=== PATIENT | female | born 1980 | race Caucasian/White ===

== ENCOUNTER 2024-12-04 12:22 | Outpatient (CLI) | payer OTHER, BC, SELFPAY ==
[2024-12-04 13:28] LABS: Hematocrit 42.5 % (37.0-47.0); Hemoglobin 13.9 g/dL (12.0-15.0)
--- OUTSIDE RECORDS SUMMARY | 2024-12-04 14:21 | XMS_ITS | Clinical Summary ---
Author Organization [facility] Address [address] [place] [address] Care Team Providers Care Feltmaker And Weigher Name Role Phone Bharat Jimneez MD Primary Care Provider [phone] Allergies Active Allergy Reactions Criticality Noted Date Comments Clindamycin Diarrhea Low 04/11/2018 Medications EPINEPHrine (EPIPEN) 0.3 mg/0.3 mL Auto-Injector 03/16/19 18 Active copper (PARAGARD T 380A INTRAUTERINE) by Intrauterine route. 01/19/20 18 028 Active ALPRAZolam (XANAX) 0.25 mg tabletIndications: Other specified anxiety disorders Take 1 Tablet (0.25 mg) by mouth 2 times daily as needed for Anxiety. 30 Tablet 2 09/18/19 22 Active cholecalciferol 1,250 mcg (50,000 unit) CapsuleIndications :Vitamin D deficiency Take 1 Capsule (50,000 Units) by mouth every 7 days. 12 Capsule 3 08/12/19 23 Active methylPREDNISolone (MEDROL DOSPACK) 4 mg Tablets, Dose PackIndications:Ho spital discharge follow-up,Pneumoni a of both lower lobes due to infectious organism Take as directed on package 21 Tablet 11/15/19 24 Active pravastatin (PRAVACHOL) 10 mg tabletIndications: Other hyperlipidemia Take 1 Tablet (10 mg) by mouth daily at bedtime. 90 Tablet 3 12/19/19 24 Active venlafaxine (EFFEXOR XR) 75 mg Extended Release 24 hour capsuleIndications :Anxiety state TAKE 1 CAPSULE BY MOUTH EVERY DAY 100 Capsule 3 04/11/19 25 Active levothyroxine 137 mcg tabletIndications: Other specified hypothyroidism TAKE 1 TABLET BY MOUTH EVERY DAY IN THE MORNING 90 Tablet 1 07/13/19 25 Active Active Problems Patient Care Coordination No te Formatting of this note migh t be different from the original. Prev visit 07/17/20 Problem Noted Date Diagnosed Date Other specified hypothyroidism 04/11/2018 Intractable migraine with aura without status mi grainosus 01/23/2017 Hyperlipidemia 03/23/2012 Migraine 03/23/2012 PCOS (polycystic ovarian syndrome) 06/21/2011 Skin lesion 06/21/2011 Resolved Problems Problem Noted Date Diagnosed Date Resolved Date Hypothyroidism due to acquir ed atrophy of thyroid 09/09/2014 04/11/2018 Encounters Date Type Department Care Team Description 09/10/2024 External Device Data ST[facility] ABSTRACTION Provider, Abstract from Last 3 Months Immunizations Immunization Administration Dates Next Due (ADACEL/BOOSTRIX)(10 YR UP) TDAP VACCINE, 0.5ML, IM 08/30/2019,02/07/2008 Influenza Seasonal Unspecified Formulation IM Family History Medical History Relation Name Comments Other Father Gout Peripheral Neuropathy Father Hypertension Maternal Grandmother Other Maternal Grandmother high ch olesterol Migraines Mother tumor in eye Other Mother occular tumor Cancer Paternal Grandfather Stroke Paternal Grandfather Seizures Paternal Grandmother Stroke Paternal Grandmother Relation Name Status Comments Brother 1 Alive Brother 2 Alive Father Alive Maternal Grandmother Mother Alive Paternal Grandfather Paternal Grandmother Sister 1 Alive Sister 2 Alive Sister 3 Alive Sister 4 Alive Social History Tobacco Use Types Packs/Day Years Used Date Smoking Tobacco: Former Cigarettes 1 12 Passive Smoke Exposure: Past Smokeless Tobacco: Former Quit: 07/08/2011 Tobacco Cessation:Counseling Given: Yes Comments:using electronic cigarettes as of Mar 2012 Alcohol Use Standard Drinks/Week Comments Not Currently 0 (1 standard drink = 0.6 oz pur e alcohol) Comments No Sex and Gender Information Value Date Recorded Sex Assigned at Not on file 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 Gender Identity Not on file Sexual Orientation Not on file Last Filed Vital Signs Vital Sign Reading Time Taken Comments Blood Pressure 102/72 11/15/2023 9:02 AM CDT Pulse 75 11/15/2023 9:02 AM CDT Temperature 36.8 C (98.2 F) 01/20/2022 7:47 AM 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 Respiratory Rate 18 06/12/2020 10:39 AM CDT Oxygen Saturation 96% 11/15/2023 9:02 AM CDT Inhaled Oxygen Concentration - - Weight 107 kg (236 lb) 11/15/2023 9:02 AM CDT Height 167.6 cm (5' 6) 11/15/2023 9:02 AM CDT Body Mass Index 38.09 11/15/2023 9:02 AM CDT Plan of Treatment Health Maintenance Due Date Last Done Comments HEPATITIS B VACCINES (1 of 3 - 19+ 3-dose series) 2001 HPV/Cotest (21-29) 10/29/2003 HPV VACCINES (1 - 3-dose SCD M series) 2009 HPV/Cotest (30-65) 2012 CERVICAL CANCER SCREENING 02/15/2017 PAP SMEAR 02/15/2017 02/15/2014 Preventative Visit- Commercial 02/07/2024 0 03/28/2023, 01/20/2022, 07/17/2020, Additional history exists INFLUENZA VACCINE (#1) 2024 11/20/2019 BREAST CANCER SCREENING 11/15/2024 11/16/2023 DTAP/TDAP/TD VACCINES (3 - T d or Tdap) 08/29/2029 08/30/2019, 02/07/2008 Procedures Procedure Name Priority Date/Time Associated Diagnosis Comments MAMMO 3D CAMPOS DIAGNOSTIC BILAT W OR WO CAD Routine 11/16/2023 1:52 PM CDT from Last 3 Months or Most Recently Relevant to Health Maintenance Results * MAMMO 3D CAMPOS DIAGNOSTIC BILAT W OR WO CAD (11/16/2023 1:52 PM CDT) Anatomical Region Laterality Modality Breast Bilateral Mammography us Abstract Provider MAMMO ORDERABLES Edited Result - Final from Last 3 Months or Most Recently Relevant to Health Maintenance Insurance [facility] BLUE ACCESS CHOICE Advance Directives For more information, please contact: [phone] * Full Code (Latest Code Status on File) Date Activated Date Inactivated Comments 07/27/2011 8:34 AM 07/27/2011 12:52 PM Care Teams Feltmaker And Weigher Relationship Specialty Start Date End Date Bharat Jimenez MD PCP - General Internal Medicine 06/21/11
--- OUTSIDE RECORDS SUMMARY | 2024-12-04 14:21 | XMS_ITS | Clinical Summary ---
Author Organization [facility] [address] Address [address] [place] [address] Care Team Providers Care Sample Prep Technician Name Role Phone Bharat Jimenez MD Primary Care Provider + Allergies Active Allergy Reactions Criticality Noted Date Comments Levofloxacin Swelling Medium 11/04/2023 Upper lip swelling with IV administration. Pt. States she has taken PO before with no reaction. Medications levothyroxine (SYNTHROID, LEVOTHROID) 100 mcg tabletIndicatio ns:hypothyroidi sm Take 137 mcg by mouth assistant professor sculpture before breakfast 8 Active venlafaxine (EFFEXOR) 75 mg tablet Take 1 tablet (75 mg total) by mouth daily Active pravastatin (PRAVACHOL) 10 mg tablet Take 1 tablet (10 mg total) by mouth nightly 2 Active benzonatate (TESSALON) 100 mg capsuleIndicati ons:Cough Take 1 capsule (100 mg total) by mouth 3 (three) times a day as needed for cough 20 capsule 4 Active Active Problems Problem Noted Date Diagnosed Date Pneumonia of both lower lobes due to infectious organism 11/03/2023 Tobacco dependence syndrome 06/22/2013 Overview (05/14/2016): TOBACCO USE DISORDER Surgical History Surgery Date Site/Laterality Comments OTHER SURGICAL HISTORY Premenstrual Dysphoric Disorder: fluoxetine per dr wetzel Medical History Medical History Date Comments Hx Other Medical Premenstrual Dy sphoric Disorder Thyroid disease Family History Medical History Relation Name Comments Stroke Maternal Grandfather Stroke; Cancer Paternal Grandfather Relation Name Status Comments Maternal Grandfather Paternal Grandfather Social History Tobacco Use Types Packs/Day Years Used Date Smoking Tobacco: Never Smokeless Tobacco: Never Alcohol Use Standard Drinks/Week Comments No 0 (1 standard drink = 0.6 oz pur e alcohol) AUDIT-C Answer Date Recorded Q1: How often do you have a drink containing alcohol? Never 11/03/2023 Q2: How many drinks containi ng alcohol do you have on a typical day when you are drinking? Patient does not drink Q3: How often do you have si x or more drinks on one occasion? Never 11/03/2023 Personal Safety Answer Date Recorded Have you ever been in or are you currently in a harmful physical or emotional relationship or is someone making you feel afraid or unsafe? 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 Gender Identity Not on file Sexual Orientation Not on file Obstetrics History Last Filed Vital Signs Vital Sign Reading Time Taken Comments Blood Pressure 120/78 11/05/2023 7:30 AM CDT Pulse 67 11/05/2023 7:30 AM CDT Temperature 36.2 C (97.2 F) 11/05/2023 7:30 AM CDT Respiratory Rate 18 11/05/2023 7:30 AM CDT Oxygen Saturation 96% 11/05/2023 7:30 AM CDT Inhaled Oxygen Concentration - - Weight 107 kg (235 lb 14.3 oz) 11/03/2023 12:20 PM CDT Height 167.6 cm (5' 6) 11/03/2023 12:20 PM CDT Body Mass Index 38.07 11/03/2023 12:20 PM CDT Plan of Treatment Health Maintenance Due Date Last Done Comments Breast Cancer Screening-Mammogram 1982 Cervical Cancer Screening 1982 Hepatitis C Screening 1982 Varicella Vaccines (1 of 2 - 13+ 2-dose series) 10/29/1995 Hepatitis B Screening 2000 Regular Well Visit/Exam 18-64 2000 HPV Vaccines (1 - 3-dose SCD M series) 2009 Depression Screening 06/11/2018 06/11/2017 Influenza Vaccine (#1) 2024 11/20/2019 DTaP/Tdap/Td Vaccine (3 - Td or Tdap) 08/29/2029 08/30/2019, 02/07/2008 Pneumococcal vaccine <65 Aged Out No longer eligible based on patient's age to complete this topic Insurance [employer] ACCESS CHOICE [employer] ACCESS CHOICE [employer] Advance Directives For more information, please contact: [phone] * Full Code (Latest Code Status on File) Date Activated Date Inactivated Comments 11/03/2023 11:00 AM 11/05/2023 5:26 PM Care Teams Sample Prep Technician Relationship Specialty Start Date End Date Bharat Jimenez MD PCP - General Internal Medicine 06/11/17
--- OUTSIDE RECORDS SUMMARY | 2024-12-04 14:21 | XMS_ITS | Clinical Summary ---
Author Organization [facility] Address [address] [place] [address] Phone Care Team Providers Care Electric Meter Reader Name Role Phone Bharat Jimenez MD Primary Care Provider [phone] Allergies Active Allergy Reactions Criticality Noted Date Comments Clindamycin Diarrhea High 04/11/2018 Azithromycin Diarrhea Medium 11/30/2021 Patient states she can take a z toña Medications levothyroxine (SYNTHROID) 112 MCG Tablet Take 112 mcg by mouth daily. Active Cholecalciferol (VITAMIN D3 PO) Take by mouth once a week. Active pravastatin (PRAVACHOL) 10 MG Tablet Take 10 mg by mouth nightly. 2 Active ALPRAZolam (XANAX) 0.25 MG Tablet Take 0.25 mg by mouth. 2 Active EPINEPHrine (EPIPEN) 0.3 MG/0.3ML Solution Auto-injector 8 Active ibuprofen (MOTRIN) 800 MG Tablet Take 800 mg by mouth. 8 Active venlafaxine (EFFEXOR-XR) 75 MG CAPSULE SR 24 HR Take 75 mg by mouth. 1 Active Paragard Intrauterine Copper IUD by Intrauterine route. Active predniSONE (DELTASONE) 10 MG TabletIndication s:Acute otalgia, left Take 4 tab PO daily x 2 days, 3 tab PO daily x 2 days, 2 tab PO daily x 2 day, 1 tab PO daily x 2 days. 20 Tablet 2 Active Additional Information Patient not taking.Reported on 12/20/2022 ofloxacin (OCUFLOX) 0.3 % Solution Place 1 Drop in affected eye(s) 4 times daily. 5 mL Active Additional Information Patient not taking.Reported on 05/29/2023 Active Problems No known active problems Social History Tobacco Use Types Packs/Day Years Used Date Smoking Tobacco: Never Smokeless Tobacco: Never Tobacco Cessation:Counseling Given: Not Answered Alcohol Use Standard Drinks/Week Comments No 0 (1 standard drink = 0.6 oz pur e alcohol) Sexually Active Control Partners Comments Yes I.U.D. Comments No Sex and Gender Information Value Date Recorded Sex Assigned at Not on file Legal Sex Female 7:46 PM CDT Gender Identity Not on file Sexual Orientation Not on file Last Filed Vital Signs Vital Sign Reading Time Taken Comments Blood Pressure 122/70 11/01/2023 9:51 AM CDT Pulse 94 11/01/2023 9:51 AM CDT Temperature 36.8 C (98.3 F) 11/01/2023 9:51 AM CDT Respiratory Rate 20 11/01/2023 9:51 AM CDT Oxygen Saturation 100% 11/01/2023 9:51 AM CDT Inhaled Oxygen Concentration - - Weight 98 kg (216 lb) 11/30/2021 2:28 PM CDT Height 167.6 cm (5' 6) 11/01/2017 11:37 AM CDT Body Mass Index 34.86 11/01/2017 11:37 AM CDT Plan of Treatment Health Maintenance Due Date Last Done Comments Hepatitis C Virus (HCV) Screening 1982 Mammogram 1982 Hepatitis B Immunization (1 of 3 - 19+ 3-dose series) 2001 Pap Smear 10/29/2003 Human Papillomavirus (HPV) Immunization (1 - 3-dose SCDM series) 2009 Cervical Cancer Screening (CCS) 2012 HPV/Cotest 2012 Discussion re Starting/Frequency of Mammograms 2022 Influenza Immunization (#1) 2024 11/20/2019 SARS-COV-2 Immunization ( - season) 2024 Respiratory Syncytial Virus (RSV) Immunization (Adult) (1 - 1-dose 75+ series) 2057 DTaP/Tdap/Td Immunization Discontinued 2019, 02/07/2008 TdaP Immunization Completed 08/30/2019, 02/07/2008 Meningococcal Immunization (ACWY) Aged Out No longer eligible based on patient's age to complete this topic Pneumococcal Immunization Combined Aged Out No longer eligible based on patient's age to complete this topic Rotavirus Immunization Aged Out No lo nger eligible based on patient's age to complete this topic Insurance [facility] Care Teams Electric Meter Reader Relationship Specialty Start Date End Date Bharat Jimenez MD [address] [place] [id number] PCP - General 11/01/17
== END 2024-12-04 12:23 | disposition home or self-care (01) ==
PROVIDERS: Visit Provider Obstetrics & Gynecology
DX: N92.6 Irregular menstruation, unspecified (principal)
CPT/HCPCS: 36415; 85014; 85018

== ENCOUNTER 2024-12-12 00:57 | Day surgery (SDC) | payer BC, OTHER, SELFPAY ==
[2024-12-02 09:48] VITALS: BMI 40.2
--- NOTE | 2024-12-02 09:49 | PC.NURSE ---
[facility] has started construction of its new state of the art ER which will open Spring 2026. With this, we anticipate parking may be a challenge for some our surgical patients and families. Parking spaces are limited but are available for all Surgical, obstetrics, and ER patients sharing this lot. If you arrive and find you are having a hard time finding a parking space, please note that we understand the challenges, please drive around the hospital and park near Hospital Entrance 1. When you enter this entrance, you can ask a volunteer to direct or take you back to the surgical waiting area to check in. We appreciate everyone?s understanding of these expected challenges while we build for your future. Report to the Outpatient Waiting Room, entrance under the green pavilion located off [address], at time _0630_ on date _[id number]_. Planned Procedure Time: _0830_.? Time changes happen often and if your time is changed the preop area will call you the afternoon before. - You and your visitor will be asked to self-screen and do not enter if you have any COVID symptoms. Please call surgeon if you need to reschedule. - A mask is optional within the hospital at this time. Patients may have clear liquids (water, carbonated beverages, clear teas, apple juice) until 3 hours prior to surgery with a maximum of 20 ounces. - No food from midnight until time of surgery and no smoking, or chewing tobacco (or any form of nicotine). No chewing gum, candy or mints. Take only the following medications with a SIP of water on the morning of surgery: __Levothyroxine and Venlafaxine____ DO NOT STOP ANY OF YOUR OTHER PRESCRIPTION MEDICATIONS PRIOR TO SURGERY EXCEPT THE FOLLOWING Hold all vitamins and supplements for 3 days per anesthesiologist. Medications to discontinue per physician Date to take last dose Please no make-up, nail thai, hairspray, perfume, deodorant, or body powder the day of surgery.? No jewelry (including any body piercings) or valuables the day of surgery, leave them at home.? Please take a shower or bath the night before, or the morning of, surgery with an antibacterial soap.? Wear comfortable, loose fitting clothing. - Jewelry must be removed prior to entering the operating room.? Rings and piercings that are not removed may be cut off. - The hospital will not accept responsibility for valuables.? - Please leave all valuables, including medications, at home the day of surgery. If you are going home after surgery, a licensed farm truck driver must drive you home.? - NO public transportation without another adult if you receive anesthesia. - We recommend that an adult stay with you for 24 hours following discharge. - We also recommend that you do not drive, make important decision, drink alcoholic beverages, or take any drugs that were not prescribed by your health care provider for at least 24 hours after your discharge time. Follow any additional instructions given to you from your surgeon. Telephone instructions given to __Diana__and asked if any additional questions and then verbalized understanding. Patient advised to call surgeon office or pre surgery nurse liaison [phone] if any additional questions.
--- NOTE | 2024-12-11 07:59 | P.HP_ITS ---
H&P: HPI History of Present Illness Date/Time: 12/11/24 07:59 Chief Complaint: Excessive heavy bleed Narrative: This is a 44-year-old female with an IUD in place and has excessive heavy bleeding she is interested in ablation. She understands this is not a form control. Risks and benefits hysteroscopy dilatation curettage Edan ablation reviewed including not exclusive of , aspiration, bleeding, transfusion, perforation injury to bowel, bladder, ureters, her other internal organs with need for open laparotomy. She received the ACOG handout entitled hysteroscopy as well as dilatation curettage and the Edna handout respectively. She had all questions answered. She asked to proceed. Review of Systems Review of Systems: All systems reviewed & are unremarkable except as noted in HPI and below [facility] Social History Social History Years smoked: 15 Smoking status: Former smoker Tobacco type: cigarettes Smoking end date: 12/02/14 Living arrangements: with family Spiritual care concerns: No Meds Home Medications and Allergies Home Medications ?Medication ?Instructions ?Recorded ?Confirmed ?Type levothyroxine 137 mcg tablet 137 mcg PO DAILY 12/02/24 12/02/24 History pravastatin 10 mg tablet 10 mg PO HS 12/02/24 5 History venlafaxine 75 mg capsule,extended 75 mg PO DAILY 11/0712/02/24 History release 24 hr Allergies Allergy/AdvReac Type Severity Reaction Status Date / Time No Known Allergies Allergy Verified 12/02/24 09:41 Exam Const: General: cooperative, healthy appearing, comfortable and overweight Orientation/consciousness: oriented to person, oriented to place and oriented to time HENMT: Head: normal to inspection Resp: Effort & Inspection: normal respiratory effort Cardio: Rate: regular rate Rhythm: regular rhythm Heart sounds: S1 normal heart sound present and S2 normal heart sound present GI: Inspection: normal to inspection : External Female Exam: normal external appearance Speculum Exam - Vagina: normal appearance of the vagina Speculum Exam - Cervix: normal appearance of the cervix Bimanual exam- vagina & uterus: non-tender and enlarged Bimanual Exam- Adnexa, other: normal adnexae Assessment and Plan Assessment and plan (1) Excessive bleeding: Code(s): R58 - Hemorrhage, not elsewhere classified Status: Acute Plan Proceed with hysteroscopy/dilatation curettage/Edna ablation
--- NOTE | 2024-12-12 06:24 | WPDHPUPDATE1 ---
History and Physical Update Update Date/Time: 12/12/24 06:24 History and Physical has been reviewed, including an updated exam of the patient. There are NO changes in the patient's condition. Risks, benefits, and alternatives have been discussed and questions answered. Patient agrees to proceed with procedure.
[2024-12-12] MEDS: ACETAMINOPHEN 500 MG TABLET 1000 MG PO (07:20)
[2024-12-12 07:22] VITALS: BP 119/77; PULSE 78; TEMP 36.4; O2SAT 99; BMI 39.7
--- NOTE | 2024-12-12 07:47 | WPDANESEPPF ---
Anes - Initial Pre Proc Eval Procedure: Operation Date: 12/12/24 08:30 Proposed Procedures p Hysteroscopy Dilation and Curettage with Edna Endometrial Ablation - Rolando Friend MD Date/Time: 12/12/24 07:47 Surgeon: Rolando Friend MD Pre Op Diagnosis: Irrg Heav Bleeding Patient Data Age: 44 Gender: F Height: 1.68 m Weight: 111.8 kg Last Vital Signs Temp 36.4 C L 12/12/24 07:22 Pulse 78 12/12/24 07:22 BP 119/77 12/12/24 07:22 Pulse Ox 99 12/12/24 07:22 O2 Del Method Room Air 12/12/24 07:22 Allergies Allergy/AdvReac Type Severity Reaction Status Date / Time No Known Allergies Allergy Verified 12/12/24 07:22 Home Medications ?Medication ?Instructions ?Recorded ?Confirmed ?Type levothyroxine 137 mcg tablet 137 mcg PO DAILY 12/02/24 12/02/24 History pravastatin 10 mg tablet 10 mg PO HS 12/02/24 12/02/24 History venlafaxine 75 mg capsule,extended 75 mg PO DAILY 12/02/24 12/02/24 History release 24 hr hydrocodone 5 mg-acetaminophen 325 1 tablet PO Q4H PRN pain #14 tabs 12/12/24 Rx mg tablet Patient hx anesthesia problems: none Family hx anesthesia problems: none Results Review: All pre-operative results and documents have been reviewed as part of the pre-operative evaluation. [facility] Past Medical History Medical History (Updated 12/12/24 @ 07:47 by Crispin Ruelas DO) PCOS (polycystic ovarian syndrome) Anxiety Social History Social History Years smoked: 15 Smoking status: Former smoker Tobacco type: cigarettes Smoking end date: 12/02/14 Living arrangements: with family Spiritual care concerns: No Anes - Eval Final PreProcedure Day of Procedure 12/12/24 07:47 Patient weight: obese Heart: regular rate and rhythm Lungs: clear to auscultation Airway: Mallampati scale class II Neurological: alert and oriented Last oral intake: >/= 8 hours ASA classification: II Emergent: no Anesthetic plan: proceed Anesthesia type and monitoring: general GIVS and standard monitoring Results Review: All pre-operative results and documents have been reviewed as part of the pre-operative evaluation. Informed Consent: The patient's anesthetic plan and its attendant risks and benefits were discussed with the patient/family/POA. Questions were solicited and answers provided to the satisfaction of the patient/family/POA.
--- NOTE | 2024-12-12 08:06 | WPDHPUPDATE1 ---
History and Physical Update Update Date/Time: 12/12/24 08:06 History and Physical has been reviewed, including an updated exam of the patient. There are NO changes in the patient's condition. Risks, benefits, and alternatives have been discussed and questions answered. Patient agrees to proceed with procedure. ad removal of IUD as part of the procedure
[2024-12-12] MEDS: LIDOCAINE 1% LOCAL INJ 20 ML VIAL 10 ML INFILTRATE (08:36)
--- NOTE | 2024-12-12 08:50 | S_PTH ---
PATIENT: Caro Trimble LOC: [facility] U#:[id number] AGE/SX: 44/F ROOM: RE12/12/[address]: Rolando Friend MD : 1980 BED: DIS: 12/12/2024 SPEC #: [id number] RECD: 12/12/24 10:19 STATUS: KVNG REQ #: [id number] WARREN: 12/12/24 08:[address]: Rolando Boyce DEPT: [facility] Surgical RECD BY: Barbara Whitley ENTERED: 12/12/24 10:19 SP TYPE: Surgical OTHR DR: UNKNOWN,DOCTOR Tissues: A - Endometrial Curettings Procedures: Hematoxylin and Eosin Stain Gross and Microscopic Level 4
--- NOTE | 2024-12-12 08:55 | W.PM.PROC2 ---
Procedure Note - Detailed Date of Procedure 12/12/24 Pre-op Diagnosis Irrg Heav Bleeding Post-op Diagnosis Same Procedure Performed Removal of IUD/hysteroscopy/dilatation curettage/Edna ablation Surgeon Rolando Friend MD Anesthesia MAC and Local Indications 44-year-old female with excessive heavy bleeding that was refractory to an IUD Findings The IUD appeared to be in the right place. Thick irregular endometrium was hysteroscopy Description of Procedure Patient was prepped draped in the sterile fashion placed in the dorsal lithotomy position. Under excellent IV sedation weighted speculum placed in posterior fornix vagina. The IUD was removed in 1 piece without difficulty. Anterior lip of the cervix grasped with a single-tooth tenaculum. 2.5cc 1% xylocaine anesthesia placed at 2, 4, 8, 10:00 a.m. of the cervix. Uterus sounded to 8cm. Serial dilatation with fragmented dilators performed followed by passage of the 5mm visualizing hysteroscope. Normal saline was used as visualizing medium. Irregular endometrium was noted from placement of the previous IUD. The uterus was then scraped over the entire 360? until good grating sound was heard. The instruments withdrawn and the Edna instrument placed at the appropriate setting this was burned for 120seconds and then removed. Photo documentation proved good burn. The instrument withdrawn were withdrawn the patient was awakened. Blood loss was estimated 5cc. All sponge, needle, instrument counts were correct. There were no immediate complications Estimated Blood Loss 5 Drains No Packing No Pathology Yes Complications No immediate complications Condition Stable Disposition PACU
[2024-12-12 09:00] VITALS: BP 109/74; PULSE 73; RESP 14; O2SAT 96
[2024-12-12] MEDS: LACTATED RINGERS 1,000 ML 30 ML IV CONT (09:00)
[2024-12-12 09:30] VITALS: BP 120/85; PULSE 62; RESP 14
--- OUTSIDE RECORDS SUMMARY | 2024-12-12 16:03 | XMS_ITS | Clinical Summary ---
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 Gender Identity Not on file Sexual Orientation Not on file Last Filed Vital Signs Vital Sign Reading Time Taken Comments Blood Pressure 102/72 11/15/2023 9:02 AM CDT Pulse 75 11/15/2023 9:02 AM CDT Temperature 36.8 C (98.2 F) 01/20/2022 7:47 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
--- OUTSIDE RECORDS SUMMARY | 2024-12-12 16:03 | XMS_ITS | Clinical Summary ---
Author Organization [facility] [place] [address] Address [address] [place] [address] Care Team Providers Care Print Controller Name Role Phone Bharat Jimenez MD Primary Care Provider + Allergies Active Allergy Reactions Criticality Noted Date Comments Levofloxacin Swelling Medium 11/04/2023 Upper lip swelling with IV administration. Pt. States she has taken PO before with no reaction. 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
--- OUTSIDE RECORDS SUMMARY | 2024-12-12 16:03 | XMS_ITS | Clinical Summary ---
Author Organization [facility] Address [address] [place] [address] Phone Care Team Providers Care Drupal Programmer Name Role Phone Bharat Jimenez MD Primary Care Provider [phone] Allergies Active Allergy Reactions Criticality Noted Date [...] 10/29/2003 Human Papillomavirus (HPV) Immunization (1 - Risk 3-dose SCDM series) 2009 Cervical Cancer Screening [...] patient's age to complete this topic Insurance [facility] Care Teams Drupal Programmer Relationship Specialty Start Date End Date Bharat Jimenez MD [address] [place] [id number] PCP - General 11/01/17
== END 2024-12-12 09:50 | disposition home or self-care (01) ==
PROVIDERS: Visit Provider Obstetrics & Gynecology
PROC: 0U5B8ZZ Destruction of Endometrium, Via Natural or Artificial Opening Endoscopic (ICD-10-PCS; CPT 58563; principal; 2024-12-12 08:30)
DX: N92.1 Excessive and frequent menstruation with irregular cycle (principal); E28.2 Polycystic ovarian syndrome; Z87.891 Personal history of nicotine dependence
CPT/HCPCS: 58563; 58301; 88305; A9270; J2003; J2250; J2405; J2704; J3010; J7120